=== PATIENT | male | born 1985 | race Caucasian/White ===

== ENCOUNTER 2024-09-11 12:54 | Outpatient (OUT) | payer BC, SELFPAY ==
--- OUTSIDE RECORDS SUMMARY | 2024-09-06 07:56 | XMS_ITS | Continuity of Care Document ---
Author Organization [facility] Address [address] [place] [address] Phone Care Team Providers Care Sawmill Or Timber Yard Worker Name Role Phone Narciso Klein DO Primary Care Provider Narciso Klein DO Attending Provider Care Teams Patient Care Team Team Status: Active Member Role Status Dates Narciso Klein DO Primary Care Provider Active Patient Care Team Team Status: Inactive Member Role Status Dates Narciso Klein DO Primary Care Provider Active Start: September 06, 2024 End: September 06, 2024 Narciso Klein DO Attending Provider Active Sta rt: September 06, 2024 End: September 06, 2024 Chief Complaint and Reason for Visit Chief Complaint Admit Date back pain September 06, 2024 10:3 5am Allergies, Adverse Reactions, Alerts Allergen Type Severity Reaction Last Updated Verified Status No Known Allergies Allergy Unknown September 06, 2024 11:03 am Yes Active Social History Smoking Status Unknown if ever smoked Observation Status Observation Response Date of Response Legal Sex Male (finding) Sex Assigned At Male [birth year] Family History Relationship Condition Age at Onset Recorded Date/T apoorva father Malignant neoplasm Unknown Problems Active Problems Medical Problem Onset Date Status Wellness examination Unknown Active Chest pain Unknown Active Medications Medication Status Dose Units Route Directions Qty Days St art Date Stop Date End Date Instructions Adherence Meloxicam 15 mg tablet Active 15 MG PO Daily 30 September 06, 2024 12:00a m Complies with drug therapy Vital Signs Vital Reading Result Reference Range Collection Date/Time Height 70 [in_i] September 06, 2024 11:08am Weight 105.29 kg September 06, 2024 11:08am Heart Rate 87 /min 60-100 September 06, 2024 11:08am Respiratory rate 12 /min 12-24 September 06, 2024 11:08am BP Systolic 133 mm[Hg] 100-140 September 06, 2024 11:08am BP Diastolic 91 mm[Hg] 60-100 September 06, 2024 11:08am BMI (Body Mass Index) 33.3 kg/m2 August 282024 11:08am Advance Directives Advance Directive Response Recorded Date/ Time Advance Directives No September 06 10:33am Insurance Providers Guarantor Michael Borges Address [address] [place] [id number] Contact Info. Home Phone: Payer Policy Id Subscriber's Name Subscriber Id Effectiv e Date Expiration Date [facility] [id number] Michael Borges [id number] Summer BC/BS [id number] Michael Borges [id number] Care Works [facility] Encounters Encounter Location(s) Arrival/Admit Date Discharge/Depart Date Provider(s) Departed Physician/Prov ider Office [facility] September 06, 2024 10:35am September 06, 2024 11:54am Narciso Klein , DO Plan of Treatment Future Tests Future scheduled test information is unavailable Pending Tests Test Name Ordered Date Scheduled Date Comprehensive Metabolic Panel September 06, 2024 11 :47am XR chest 2V* September 06, 2024 11:45am ECG 12 lead ECG September 06, 2024 11:45am Future Visits Future appointment information is unavailable Referrals to Other Providers Referral information is unavailable Future Procedures Procedure Name Ordered Date Scheduled Date Complete Blood Count Auto Diff September 06, 2024 1 1:47am Lipid Panel September 06, 2024 11:47am Future Medications Future medication information is unavailable Patient Instructions Patient instructions are unavailable
--- OUTSIDE RECORDS SUMMARY | 2024-09-11 12:56 | XMS_ITS | Clinical Summary ---
Author Organization [employer] [facility] tem Address [id number] [address] [place] [address] Care Team Providers Care Flash Developer Name Role Phone Narciso Klein DO Primary Care Provider [phone] Allergies No known active allergies Medications diclofenac (VOLTAREN) 75 mg EC tablet 11/12/2016 Active Active Problems No known active problems Social History Tobacco Use Types Packs/Day Years Used Date Smoking Tobacco: Never Smokeless Tobacco: Never Alcohol Use Standard Drinks/Week Comments Yes 0 (1 standard drink = 0.6 oz pur e alcohol) drinks on the weekends Childcare Answer Date Recorded Childcare Unknown 08/09/2018 Employment Answer Date Recorded Employment Unknown 08/09/2018 Purpose - Life Answer Date Recorded Purpose and direction in life Unknown Sex and Gender Information Value Date Recorded Sex Assigned at Not on file Legal Sex Male 12:10 PM EDT Gender Identity Not on file Sexual Orientation Not on file Last Filed Vital Signs Vital Sign Reading Time Taken Comments Blood Pressure 134/82 03/07/2017 2:19 PM EST Pulse - - Temperature - - Respiratory Rate - - Oxygen Saturation - - Inhaled Oxygen Concentration - - Weight 102.5 kg (226 lb) 03/07/2017 2:19 PM EST Height 177.8 cm (5' 10 ) 03/07/2017 2:19 PM EST Body Mass Index 32.43 03/07/2017 2:19 PM EST Plan of Treatment Health Maintenance Due Date Last Done Comments Depression Screening 1997 Tobacco Screening 1997 Adult BMI Screening 2003 DTaP,Tdap and Td Vaccines (1 - Tdap) 2004 Influenza Vaccine 10/29/2024 Medical Devices Not on file Insurance Care Teams Flash Developer Relationship Specialty Start Date End Date Narciso Klein DO [address] [place] [address] PCP - General 01/17/17
[2024-09-11 13:10] LABS: Hematocrit 43.9 % (42.0-54.0); Hemoglobin 15.7 g/dL (14.0-18.0); Immature Granulocytes Abs Auto 0.02 10^3/uL (0.00-0.03); Immature Granulocytes Pct Auto 0.4 % (0.0-0.5); Lymphocytes Absolute Auto 1.7 10^3/uL (1.2-3.8); Mean Corpuscular HGB Conc 35.8 g/dL (29.9-35.2); Mean Corpuscular Hemoglobin 31.1 pg (25.9-34.0); Mean Corpuscular Volume 86.9 fL (80.0-94.0); Platelet Count 204 10^3/uL (150-450); Red Blood Count 5.05 10^6/uL (4.70-6.10); White Blood Count 5.1 10^3/uL (4.0-11.0)
--- NOTE | 2024-09-11 13:12 | XR_ITS ---
The [address] [address] Patient Name: MG BRYAN MRN: [id number] date: 1985 Sex: M Assigned Patient Location: CARD Current Patient Location: CARD Accession/Order Number: [id number] Exam Date: 09/11/2024 15:11 Report Date: 09/11/2024 15:11 At the request of: KEN MARIN DO Procedure: XR chest 2V Plain film chest Single view HISTORY: Chest pain COMPARISON: None FINDINGS: SUPPORT DEVICES: None POSTSURGICAL CHANGES: None HEART: Within normal limits PULMONARY FABIENNE: Within normal limits MEDIASTINUM: Unremarkable LUNGS AND PLEURA: No acute lung process, pleural effusion or pneumothorax identified. BONY STRUCTURES: Intact ADDITIONAL FINDINGS None XR/XR chest 2V IMPRESSION: No acute process. Impression dictated by: Zbigniew Burton M.D. 09/11/2024 3:11 PM Dictation Location: [place] [address] Electronically authenticated by: [id number] Y Date: 09/11/2024 15:11
--- NOTE | 2024-09-11 13:20 | ECG_ITS ---
The [facility] Test Date: 2024-09-11 Pat Name: MG BRYAN Department: Room: - Gender: Male Payroll Coordinator: : 1985 Requested By: KEN MARIN Order Number: [id number] Reading MD: BAN BAKER Measurements Intervals Gary Rate: 56 P: 45 CA: 148 QRS: 60 QRSD: 108 T: 6 QT: 421 QTc: 408 Interpretive Statements SINUS BRADYCARDIA POSSIBLE RIGHT VENTRICULAR CONDUCTION DELAY [RSR (QR) IN V1/V2] NONSPECIFIC T-WAVE ABNORMALITY No previous ECG available for comparison Electronically Signed On 09-13-2024 16:18:38 EDT by BAN BAKER
[2024-09-11 13:25] LABS: Alanine Aminotransferase 58 U/L (16-63); Albumin Globulin Ratio 1.1; Albumin Level 4.0 g/dL (3.4-5.0); Alkaline Phosphatase 65 U/L (46-116); Anion Gap 11.0; Aspartate Amino Transferase 22 U/L (15-37); Blood Urea Nitrogen 15.0 mg/dL (7.0-18.0); Calcium 9.1 mg/dL (8.5-10.1); Carbon Dioxide 27.9 mmol/L (21.0-32.0); Chloride 104 mmol/L (98-107); Cholesterol 272 mg/dL (<=200); Estimated GFR (African America >60 (>=60 mL/min/1.73m^2); Estimated GFR (Non-African Ame >60 (>=60 mL/min/1.73m^2); Globulin 3.5 g/dL; Glucose 95 mg/dL (74-106); HDL Cholesterol 53 mg/dL (40-60); Potassium 3.9 mmol/L (3.5-5.1); Sodium 139 mmol/L (136-145); Total Protein 7.5 g/dL (6.4-8.2); Triglycerides 142 mg/dL (<=150); VLDL CHOLESTEROL 28.4 mg/dL
== END 2024-09-11 12:55 | disposition home or self-care (01) ==
LOC: CARD 12:55
PROVIDERS: PCP Internal Medicine; Visit Provider Internal Medicine
DX: Z00.00 Encounter for general adult medical examination without abnormal findings (principal); R07.9 Chest pain, unspecified
CPT/HCPCS: 36415; 71046; 80053; 80061; 85025; 93005

== ENCOUNTER 2024-09-18 13:06 | Outpatient (OUT) | payer BC, SELFPAY ==
--- NOTE | 2024-09-18 13:08 | CA_ITS ---
Patient Name: MG BRYAN MR#: [id number] : 1985 Exam Date: 09/18/2024 Ordering Doctor: DR KEN MARIN D.O. ECHOCARDIOGRAM REPORT PROCEDURE: CA ECHO DOPPLER COMPLETE INDICATIONS: Bradycardia, Intraventricular conduction delay, Chest pain COMPARISON: None. DESCRIPTION: COMPLETE ECHOCARDIOGRAM Real-time transthoracic echocardiography with 2D, M-mode, spectral and color flow Doppler performed. QUALITY: Technical quality was good. LEFT VENTRICLE: Normal chamber size. Mild concentric left ventricular hypertrophy. Global left ventricular systolic function is normal. LV EF: Estimated left ventricular ejection fraction is 55-60%. DIASTOLIC: Normal diastolic function. ATRIAL SEPTUM: LEFT ATRIUM: Normal chamber size. RIGHT ATRIUM: Normal chamber size. RIGHT VENTRICLE: Normal chamber size. Normal right ventricular systolic function. TRICUSPID VALVE: Normal mobility and thickness. No stenosis with trivial regurgitation. No evidence of pulmonary hypertension. RVSP 19mmHg. MITRAL VALVE: Normal mobility and thickness. No evidence of mitral valve stenosis. There is no mitral annular calcification. Trivial mitral regurgitation. AORTIC VALVE: Normal trileaflet appearance. No visible sclerosis. Normal leaflet mobility. No evidence of aortic valve stenosis. No aortic regurgitation. AORTIC ROOT: Normal diameter and appearance, measuring 3.2 cm. The ascending aorta is normal in size measuring 2.7 cm PULMONIC VALVE: Normal thickness and mobility. No stenosis. Trivial regurgitation. PERICARDIUM: No evidence of pericardial effusion. IVC: Collapses with inspiration. Normal size. PLEURA: CONCLUSION: 1. Normal ventricular size and systolic function. Estimated LVEF is 55 to 60%. 2. No significant valvular dysfunction. 3. Normal right-sided pressures. Adult Echocardiography Procedure Report Left Ventricle LVEDD (3.7 - 5.6 cm): 4.11 cm LVESD (2.2 - 4.0 cm): 2.39 cm LVIVS thickness (0.6 - 1.2 cm): 1.31 cm LVPW thickness (0.5 - 1.0 cm): 1.16 cm e': 0.12 m/s E - e': 5.36 LVOT Max Gradient: 6.35 mm[Hg] LVOT Area (cm2): 1.26 m/s Peak Velocity (LVOT): 1.26 m/s Mean Velocity (LVOT): 0.83 m/s LVOT Diameter 2.19 cm Left Ventricular Ejection Fraction: 55-60 % Left Atrium LA Volume Index (2D A2C): 15.55 ml/m2 Left Atrium Systolic Dimension: 4.10 cm Mitral Valve MV E to A Ratio: 1.24 Mitral Valve A-Wave Peak Velocity: 0.53 m/s Mitral Valve E-Wave Peak Velocity: 0.66 m/s Right Ventricle RV Internal Diastolic Dimension: 3.75 cm Aorta AO Root Diam: 3.24 cm Ascending Ao Diam: 2.72 cm Aortic Valve AoV Area (Peak Shivam): 3.98 cm2, 3.98 cm2 AoV Area (VTI): 3.48 cm2, 3.48 cm2 Peak Velocity(Antegrade Flow): 1.19 m/s Peak Gradient(Antegrade Flow): 5.70 mm[Hg] Mean Velocity(Antegrade Flow): 0.79 m/s Mean Gradient(Antegrade Flow): 2.94 mm[Hg] Velocity Time Integral: 24.38 cm Tricuspid Valve Peak Velocity (Regurgitant Flow): 1.97 m/s, 1.99 m/s Pulmonic Valve Mean Gradient: 2.26 mm[Hg] Mean Velocity: 0.68 m/s Peak Velocity: 1.06 m/s, 1.02 m/s Peak Gradient: 4.50 mm[Hg], 4.14 mm[Hg] Right Atrium Right Atrium Systolic Pressure: 39.47 ml, 39.47 ml Dictated by: Av Cool M.D. on 09/19/2024 at 18:37 Approved by: Av Cool M.D. on 09/19/2024 at 18:40
--- OUTSIDE RECORDS SUMMARY | 2024-09-18 13:09 | XMS_ITS | Clinical Summary ---
Author Organization [employer] [facility] tem Address [id number] [address] [place] [address] Care Team Providers Care Environmental Planning Engineer Name Role Phone Narciso Klein DO Primary Care Provider [phone] Allergies No known active allergies Medications diclofenac [...] Devices Not on file Insurance Care Teams Environmental Planning Engineer Relationship Specialty Start Date End Date Narciso Klein DO [address] [place] [address] PCP - General 01/17/17
--- OUTSIDE RECORDS SUMMARY | 2024-09-18 13:09 | XMS_ITS | Clinical Summary ---
Author Organization The [facility] Address [address] [place] [address] Care Team Providers Care Carpenter Supervisor Wooden Ship Name Role Phone Unavailable Primary Care Provider Unavailabl e Social History Tobacco Use Types Packs/Day Years Used Date Smoking Tobacco: Never Assessed Sex and Gender Information Value Date Recorded Sex Assigned at Not on file Legal Sex Male 4:28 PM EDT Gender Identity Not on file Sexual Orientation Not on file Plan of Treatment Upcoming Encounters Date Type Department Care Team (Late st Contact Info) Description 09/24/2024 10:30 AM EDT Office Visit [facility] Heart [facility] [address] [place] [address] Av Cool MD [address] [facility] [address] [facility] [place] [phone] Health Maintenance Due Date Last Done Comments Depression Screening 1997 Varicella Vaccines (1 of 2 - 13+ 2-dose series) 1998 Hepatitis B Vaccines (1 of 3 - 19+ 3-dose series) 2004 Adult Tetanus 2007 Influenza Vaccine (#1) 2024 Zoster Vaccines (1 of 2) 2035 HIB Vaccines Aged Out No longer eligi ble based on patient's age to complete this topic HPV Vaccines Aged Out No longer eligi ble based on patient's age to complete this topic IPV Vaccines Aged Out No longer eligi ble based on patient's age to complete this topic Meningococcal B Vaccine Aged Out No l onger eligible based on patient's age to complete this topic Meningococcal Vaccine Aged Out No hema gonzález eligible based on patient's age to complete this topic Pneumococcal Vaccine: Pediat rics (0 to 5 Years) and At-Risk Patients (6 to 64 Years) Aged Out No longer eligible b ased on patient's age to complete this topic Rotavirus Vaccines Aged Out No longer eligible based on patient's age to complete this topic
== END 2024-09-18 13:07 | disposition home or self-care (01) ==
LOC: CARD 13:07
PROVIDERS: PCP Internal Medicine; Visit Provider Internal Medicine
DX: R00.1 Bradycardia, unspecified (principal); I45.9 Conduction disorder, unspecified; R07.2 Precordial pain
CPT/HCPCS: 93306

== ENCOUNTER 2024-09-28 07:31 | Outpatient (OUT) | payer BC, SELFPAY ==
--- OUTSIDE RECORDS SUMMARY | 2024-09-24 10:30 | XMS_ITS | Encounter Summary ---
Author Organization The [facility] Address [address] [place] [address] Care Team Providers Care Easement Worker Name Role Phone Narciso Klein DO Primary Care Provider [phone] Encounter Details Date Type Department Care Team (Late st Contact Info) Description 09/24/2024 10:30 AM EDT Office Visit [facility] [address] [place] [address] Av Cool MD [address] [facility] [address] [facility] [place] [address] Other chest pain (Primary Dx); Familial hypercholesterolemia Social History Tobacco Use Types Packs/Day Years Used Date Smoking Tobacco: Never Smokeless Tobacco: Never Tobacco Cessation:Counseling Given: Not Answered Alcohol Use Standard Drinks/Week Comments Yes 0 (1 standard drink = 0.6 oz pur e alcohol) Sex and Gender Information Value Date Recorded Sex Assigned at Not on file Legal Sex Male 4:28 PM EDT Gender Identity Not on file Sexual Orientation Not on file documented as of this encounter Last Filed Vital Signs Vital Sign Reading Time Taken Comments Blood Pressure 124/84 09/24/2024 10:36 AM EDT Pulse 83 09/24/2024 10:36 AM EDT Temperature - - Respiratory Rate - - Oxygen Saturation 96% 09/24/2024 10:36 AM EDT Inhaled Oxygen Concentration - - Weight 104 kg (230 lb) 09/24/2024 10:36 AM EDT Height 177.8 cm (5' 10 ) 09/24/2024 10:36 AM EDT Body Mass Index 33 09/24/2024 10:36 AM EDT documented in this encounter Progress Notes * Av Cool MD - 09/24/2024 10:30 AM EDT Images from the original note were not included. [place] [facility] Subjective Michael Borges is a 39 y.o. year old male patient being seen to establish care for chest pain. Had EKG and echo recently. Chest pain has been occurring for the past 6 months or so. Denies SOB and palpitations. Grandfather had hx of CABG. Patient attributes his stress to his job. Patient Active Problem List Diagnosis Familial hypercholesterolemia Family History Problem Relation Name Age of Onset Hyperlipidemia Mother Hyperlipidemia Father Coronary artery disease Paternal Grandfather Other (CABG) Paternal Grandfather Social History Tobacco Use Smoking status: Never Smokeless tobacco: Never Substance Use Topics Alcohol use: Yes HPI He is seen as a new patient for chest pain. He is a 39-year-old man with prior history of hypercholesterolemia. He is currently on no medications. He has family history of coronary artery disease. Family history is significant for hypercholesterolemia. He has been having symptoms of chest pain over the past several months. He describes the pain as pressure and heaviness in the left side of the chest with radiation to the back and sometimes to the left shoulder. 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 It can happen with exertion as well as at rest. He reports that the pains would subside on its own. Sometimes he continues working construction while he is having the pain. He does not have shortness of breath on exertion or palpitations. He was investigated by his PCP with an EKG that showed right ventricular conduction delay and nonspecific T wave abnormality. His echocardiogram showed normal ventricular function and no significant valvular dysfunction. His chest x-ray showed no significant abnormalities. Review of Systems Cardiovascular: Positive for chest pain. Musculoskeletal: Positive for back pain. All other systems reviewed and are negative. Objective Visit Vitals BP 124/84 (BP Location: Left arm, Patient Position: Sitting) Pulse 83 Ht 1.778 m (5' 10 ) Wt 104 kg (230 lb) SpO2 96% BMI 33.00 kg/m?? Smoking Status Never BSA 2.27 m?? Physical Exam Constitutional: Appearance: He is well-developed. He is not ill-appearing. HENT: Head: Normocephalic and atraumatic. Nose: Nose normal. Eyes: General: No scleral icterus. Pupils: Pupils are equal, round, and reactive to light. Neck: Thyroid: No thyromegaly. Vascular: No JVD. Cardiovascular: Rate and Rhythm: Normal rate and regular rhythm. Pulses: Radial pulses are 2+ on the right side and 2+ on the left side. Heart sounds: Normal heart sounds. No murmur heard. No friction rub. No gallop. Pulmonary: Effort: Pulmonary effort is normal. No respiratory distress. Breath sounds: Normal breath sounds. No wheezing or rales. Chest: Chest wall: No tenderness. Abdominal: General: Bowel sounds are normal. There is no distension. Palpations: Abdomen is soft. Tenderness: There is no abdominal tenderness. Musculoskeletal: General: No swelling. Cervical back: Neck supple. Skin: General: Skin is warm and dry. Neurological: General: No focal deficit present. Mental Status: He is alert and oriented to person, place, and time. Psychiatric: Mood and Affect: Mood normal. Behavior: Behavior is cooperative. Judgment: Judgment normal. Allergies No Known Allergies Medications Current Outpatient Medications: aspirin 81 mg chewable tablet, Chew 1 tablet (81 mg) in the morning., Disp: 90 tablet, Rfl: 3 isosorbide mononitrate ER (Imdur) 30 mg 24 hr tablet, Take 1 tablet (30 mg) by mouth in the morning. Do not crush or chew., Disp: 90 tablet, Rfl: 3 metoprolol succinate XL (Toprol-XL) 25 mg 24 hr tablet, Take 1 tablet (25 mg) by mouth in the morning. Do not crush or chew., Disp: 90 tablet, Rfl: 3 nitroglycerin (Nitrostat) 0.4 mg SL tablet, Place 1 tablet (0.4 mg) under the tongue every 5 (five)minutes if needed for chest pain. May repeat dose every 5 minutes for up to 3 doses total., Disp: 25 tablet, Rfl: 0 rosuvastatin (Crestor) 40 mg tablet, Take 1 tablet (40 mg) by mouth at bedtime., Disp: 90 tablet, Rfl: 3 Recent Labs Blood testing 09/11/2024: Hemoglobin 15.7, platelets 204, potassium 3.9, BUN 15, creatinine 1.03, EGFR more than 60, LFTs normal, triglycerides 142, cholesterol 272, LDL 191, HDL 53. Imaging and other tests Echocardiogram 09/18/2024: CONCLUSION: 1. Normal ventricular size and systolic function. Estimated LVEF is 55 to 60%. 2. No significant valvular dysfunction. 3. Normal right-sided pressures. ECG 09/11/2024: Sinus bradycardia, possible right ventricular conduction delay, nonspecific T wave abnormality. Chest x-ray 09/11/2024: No acute process. Assessment/Plan Diagnoses and all orders for this visit: Other chest pain - aspirin 81 mg chewable tablet; Chew 1 tablet (81 mg) in the morning. - metoprolol succinate XL (Toprol-XL) 25 mg 24 hr tablet; Take 1 tablet (25 mg) by mouth in the morning. Do not crush or chew. - isosorbide mononitrate ER (Imdur) 30 mg 24 hr tablet; Take 1 tablet (30 mg) by mouth in the morning. Do not crush or chew. - nitroglycerin (Nitrostat) 0.4 mg SL tablet; Place 1 tablet (0.4 mg) under the tongue every 5 (five) minutes if needed for chest pain. May repeat dose every 5 minutes for up to 3 doses total. - Treadmill Stress Myocardial Perfusion Imaging; Future Familial hypercholesterolemia - rosuvastatin (Crestor) 40 mg tablet; Take 1 tablet (40 mg) by mouth at bedtime. - Hepatic function panel; Future - Lipid panel; Future 1. Chest pain: His symptom is concerning for possible cardiac etiology and anginal symptoms. I spent a long time explaining to him coronary artery disease and potential symptoms. I explained to him the management including medical therapy as well as further investigation to confirm or rule out significant coronary artery disease. I explained the option of stress testing versus proceeding to cardiac catheterization directly. He prefers to start with the noninvasive route first. I am going to start him on aspirin 81 mg daily, metoprolol succinate 25 mg once daily, isosorbide mononitrate 30 mg once daily. In addition I am going to start him on rosuvastatin for hypercholesterolemia. I also gave him sublingual nitroglycerin to use if needed. I am going to check a treadmill stress test with myocardial perfusion imaging given his symptoms, high suspicion for coronary artery disease and abnormal EKG at baseline. I explained to him that if the stress test is abnormal we will need to proceed with cardiac catheterization. I explained the procedure in detail along with risks and benefits including risk of [place], stroke and . He understands and agrees to the above plan. 2. Hypercholesterolemia: This is most likely familial hypercholesterolemia given his family historyand LDL more than 190. His who is a nurse tells me that 2 years ago he had a higher level cholesterol. I am going to start him on rosuvastatin 40 mg daily and check a lipid and liver panel in 1 month. I will plan on seeing him in 1 month to follow-up on his clinical progress. I explained to them that if the stress test is abnormal then we will proceed with cardiac catheterization. Follow up in about 4 weeks (around 10/22/2024). Av Cool MD documented in this encounter Plan of Treatment Upcoming Encounters Date Type Department Care Team (Late st Contact Info) Description 10/15/2024 3:15 PM EDT Office Visit [facility] [address] [place] [address] Av Cool MD [address] [facility] [address] [facility] [place] [address] Scheduled Orders Name Type Priority Associated Diagnoses Orde r Schedule Treadmill Stress Myocardial Perfusion Imaging Cardiac Services Routine Other chest pain Expected: 09/24/2024 (Approximate), Expires: 09/24/2026 Hepatic function panel Lab Routine Familial hypercholesterolemia Expected: 10/25/2024 (Approximate), Expires: 09/24/2025 Lipid panel Lab Routine Familial hypercholesterolemia Expected: 10/25/2024 (Approximate), Expires: 09/24/2025 documented as of this encounter Visit Diagnoses Diagnosis Other chest pain- Primary Familial hypercholesterolemia documented in this encounter Care Teams Easement Worker Relationship Specialty Start Date End Date Narciso Klein DO [address] [place] [phone] PCP - General Internal Medicine 09/21/24 documented as of this encounter
--- NOTE | 2024-09-28 07:30 | NM_ITS ---
Patient Name: MG BRYAN MR#: [id number] : 1985 Exam Date: 09/28/2024 Ordering Doctor: DR TALIA RIVERA M.D. RADIOLOGY REPORT PROCEDURE: NM HAFSA PERF SPECT REST STR COMPARISON: None. INDICATIONS: CHEST PAIN, ABNORMAL EKG TECHNIQUE: Exam Description: Stress/Rest one day protocol gated SPECT Rest Imagin.0 mCi Tc-99m Cardiolite IV on 09/28/2024 Stress Imaging 30.8 mCi Tc-99m Cardiolite IV on 09/28/2024 Exercise Protocol: Amado Heart Rate (bpm): Rest: 64 Max: 155 PMHR: 85 Blood Pressure: Rest: 136/74 Max: 180/94 Exercise Time: Minutes: 11 Seconds: 08 Stage Reached: Stage: 4 Mets 13.4 Symptoms: CHEST PAIN Rest and peak stress ECG findings were pending and the EKG portion of the study was pending per attending physician [facility] . For more details please see separate cardiac stress test report. FINDINGS: QUALITY OF STUDY: Good PERFUSION DEFECT: None LOCATION: SIZE: SEVERITY: TYPE: WALL MOTION: All normal LV SIZE: 113 mL. TID / TCD: 0.8 LVEF: Calculated EF 66%. SUMMARY: Normal myocardial perfusion imaging study CONCLUSION: Normal myocardial perfusion stress nuclear study without evidence of ischemia or infarction Normal left ventricular systolic function, ejection fraction 66% No transient ischemic dilatation, TID 0.8 EKG portion of stress test is reported separately Dictated by: Leobardo Singleton MD on 10/01/2024 at 09:27 Approved by: Leobardo Singleton MD on 10/01/2024 at 09:44
--- OUTSIDE RECORDS SUMMARY | 2024-09-28 07:32 | XMS_ITS | Clinical Summary ---
Author Organization [facility] tem Address [facility] [id number] [address] [place] [address] Care Team Providers Care Artificial Breeding Technician Name Role Phone Narciso Klein DO Primary Care Provider [phone] Allergies No known active allergies Medications diclofenac [...] Devices Not on file Insurance Care Teams Artificial Breeding Technician Relationship Specialty Start Date End Date Narciso Klein DO [address] [place] [address] PCP - General 01/17/17
--- OUTSIDE RECORDS SUMMARY | 2024-09-28 07:32 | XMS_ITS | Clinical Summary ---
Author Organization [facility] Address [address] [place] [address] Care Team Providers Care Outside Cutter Hand Name Role Phone Narciso Klein DO Primary Care Provider [phone] Allergies No known active allergies Medications aspirin 81 mg chewable tabletIndications:Other chest pain Chew 1 tablet (81 mg) in the morning. 90 tablet 3 09/25/19 25 026 Active metoprolol succinate XL (Toprol-XL) 25 mg 24 hr tabletIndications:Other chest pain Take 1 tablet (25 mg) by mouth in the morning. Do not crush or chew. 90 tablet 3 09/25/19 25 026 Active isosorbide mononitrate ER (Imdur) 30 mg 24 hr tabletIndications:Other chest pain Take 1 tablet (30 mg) by mouth in the morning. Do not crush or chew. 90 tablet 3 09/25/19 25 026 Active rosuvastatin (Crestor) 40 mg tabletIndications:Famili al hypercholesterolemia Take 1 tablet (40 mg) by mouth at bedtime. 90 tablet 3 09/25/19 25 026 Active nitroglycerin (Nitrostat) 0.4 mg SL tabletIndications:Other chest pain Place 1 tablet (0.4 mg) under the tongue every 5 (five) minutes if needed for chest pain. May repeat dose every 5 minutes for up to 3 doses total. 25 tablet 09/25/19 25 026 Active Active Problems Problem Noted Date Diagnosed Date Familial hypercholesterolemia 09/24/2024 Encounters Date Type Department Care Team Description 09/26/2024 Telephone [facility] [address] [place] [id number] Hina Carey MA 09/24/2024 10:30 AM EDT Office Visit [address] [address] Av Cool MD Other chest pain (Primary Dx); Familial hypercholesterolemia from Last 3 Months Family History Medical History Relation Name Comments Hyperlipidemia Father Hyperlipidemia Mother CABG Paternal Grandfather Coronary artery disease Paternal Grandfather Relation Name Status Comments Father Mother Paternal Grandfather Social History Tobacco Use Types Packs/Day Years [...] Mass Index 33 09/24/2024 10:36 AM EDT Plan of Treatment Upcoming Encounters Date Type Department Care Team (Late st Contact Info) Description 10/15/2024 3:15 PM EDT Office Visit [facility] [address] [place] [id number] Av Cool MD [address] [facility] [address] [facility] [place] [address] Health Maintenance Due Date Last Done Comments Depression Screening 1997 Varicella Vaccines (1 of 2 - 13+ 2-dose series) 1998 Hepatitis B Vaccines (1 of 3 - 19+ 3-dose series) 2004 Adult Tetanus 2007 COVID-19 Vaccine (1 - 2023-2 5 season) 2023 Influenza Vaccine (#1) 2024 Zoster Vaccines (1 [...] on patient's age to complete this topic Insurance [address] [place] [address] [facility] Member Subscriber Plan / Payer (Ef fective 2021-Present) Name:Michael Borges Relation to Subscriber:Self Name:Michael Borges Payer ID:[id number] (NAIC) Type:Not on file Address: [facility] [address] [place] [id number] Care Teams Outside Cutter Hand Relationship Specialty Start Date End Date Narciso Klein DO [address] [facility] [place] [id number] PCP - General Internal Medicine 09/21/24
--- OUTSIDE RECORDS SUMMARY | 2024-09-28 07:32 | XMS_ITS | Encounter Summary ---
Author Organization [facility] Address [address] [place] [address] Care Team Providers Care Field Installation Technician Name Role Phone Narciso Klein DO Primary Care Provider [phone] Encounter Details Date Type Department Care Team (Late st Contact Info) Description 09/26/2024 Telephone [facility] [address] [place] [address] Hina Carey MA Social History Tobacco Use Types Packs/Day Years [...] on file documented as of this encounter Plan of Treatment Upcoming Encounters Date Type Department Care Team (Late st Contact Info) Description 10/15/2024 3:15 PM EDT Office Visit [facility] [address] [place] [address] Av Cool MD [address] [place] [address] [facility] [place] [address] documented as of this encounter Visit Diagnoses Not on filedocumented in this encounter Care Teams Field Installation Technician Relationship Specialty Start Date End Date Narciso Klein DO [address] [facility] [place] [address] PCP - General Internal Medicine 09/21/24 documented as of this encounter
--- NOTE | 2024-09-28 09:02 | PC.NURSE ---
Nursing Note Cardiac Stress Test Reviewed: Medication, allergies and patient history reviewed. Stress Test: [ ] Patient tolerated stress test well. [ ] Patient unable to tolerate walking on treadmill. Switched to Lexiscan stress test. [ ] No chest pain noted per patient [x ] Chest pain that resolved prior to leaving stress lab. [ ] No dyspnea noted. [x ] Dyspnea that resolved prior to leaving stress lab. [x ] Patient left stress lab asymptomatic and hemodynamically stable. [ ] Patient taken to the Emergency Room due to non-resolving symptoms following stress test. [x ] Patient achieved target heart rate. [ ] Patient unable to achieve target heart rate. [ ] Aminophylline administered as reversal agent to Lexiscan (Regadenoson). [ ] Nitro administered. Nursing Comments:Pt had 8/10 chest pain that he states is the worst he has had. With rest the pain went away after about 8 minutes of rest. Pt had EKG changes that resolved also with rest. I spoke with [facility] physician and they said pt needs scheduled for a cath which this was done but that he was ok to go home after scans since pain and EKG changes normalized. Pt and SO were educated on S/S of what to watch for and when they need to go to the ER. Pt and SO both understand. Pt left stress lab with no symptoms at this time. Pt had breakfast in stress lab to be monitored prior to second set of images.
--- NOTE | 2024-10-01 09:00 | PM.STRESS ---
Stress Test Stress Test Requesting physician: TALIA RIVERA Procedure: This was a Treadmill stress test with myocardial perfusion imaging performed at the [facility] on 09/28/2024. Intravenous line was secured. The patient was attached to electrocardiographic monitoring. Baseline vital signs and ECG were obtained. The patient exercised on the treadmill according to the Amado protocol. Cardiolite was administered at peak exercise. The patient then went on to obtain myocardial perfusion imaging. Exercise time was 11 minutes and 8 seconds. The patient reached stage IV of the Amado protocol and achieved 13.4 METS. Resting heart rate was 64 bpm and peak heart rate was 155 bpm representing 85% of maximal predicted heart rate. Resting blood pressure was 136/74 and peak blood pressure was 180/94. General Information: Reason for Stress Test: Chest pain, abnormal ECG. Cardiac History and Risk Factors: Hypertension. Resting 12 - Lead Electrocardiogram: Normal sinus rhythm, normal ECG. Stress Test: Protocol: Amado protocol. Exercise Capacity: Good. Blood Pressure Response: Resting hypertension, exaggerated blood pressure response to exercise. Rhythm: Sinus rhythm. No arrhythmias seen. ST - Response: [address] segment depressions seen in leads II, III, aVF, V4, V5, V6 at peak exercise, the changes resolved within 2 minutes of recovery. Patient Response: Chest pain that resolved after 8 minutes of resting. Interpretation: 1. Positive treadmill exercise stress test for ischemic ST changes. Patient developed symptoms typical of angina with peak exercise. 2. Pettit treadmill score of +2 is associated with intermediate risk for long-term cardiac events. 3. Myocardial perfusion images will be reported separately.
== END 2024-09-28 07:32 | disposition home or self-care (01) ==
LOC: NM 07:31
PROVIDERS: PCP Internal Medicine; Visit Provider Internal Medicine Interventional Cardiology
DX: R07.89 Other chest pain (principal)
CPT/HCPCS: 78452; 93017; A9500

== ENCOUNTER 2024-11-28 12:58 | Outpatient (OUT) | payer BC, SELFPAY ==
--- OUTSIDE RECORDS SUMMARY | 2024-11-28 13:05 | XMS_ITS | Clinical Summary ---
Author Organization [facility] tem Address [facility] [id number] [address] [place] [address] Care Team Providers Care Contour Path Tape Mill Operator Name Role Phone Narciso Klein DO Primary Care Provider [phone] Allergies No known active allergies Medications diclofenac [...] Devices Not on file Insurance Care Teams Contour Path Tape Mill Operator Relationship Specialty Start Date End Date Narciso Klein DO [address] [place] [address] PCP - General 01/17/17
[2024-11-28 13:56] LABS: Alanine Aminotransferase 67 U/L (16-63); Albumin Globulin Ratio 1.2; Albumin Level 4.4 g/dL (3.4-5.0); Alkaline Phosphatase 60 U/L (46-116); Aspartate Amino Transferase 31 U/L (15-37); Cholesterol 156 mg/dL (<=200); Globulin 3.6 g/dL; HDL Cholesterol 51 mg/dL (40-60); Total Protein 8.0 g/dL (6.4-8.2); Triglycerides 110 mg/dL (<=150); VLDL CHOLESTEROL 22.0 mg/dL
== END 2024-11-28 12:59 | disposition home or self-care (01) ==
LOC: LAB 13:04
PROVIDERS: PCP Internal Medicine; Visit Provider Internal Medicine
DX: E78.01 Familial hypercholesterolemia (principal); E78.5 Hyperlipidemia, unspecified
CPT/HCPCS: 36415; 80061; 80076